=== PATIENT | male | born 1985 | race Caucasian/White ===

== ENCOUNTER 2019-11-01 03:50 | Emergency (ER) | payer OTHER ==
[~2019-11-01] VITALS: Ht 188 cm; Wt 100.7 kg
== END 2019-11-01 04:53 | disposition home or self-care (01) ==
LOC: ER 03:50
DX: S93.492A Sprain of other ligament of left ankle, initial encounter (principal); W01.0XXA Fall on same level from slipping, tripping and stumbling without subsequent striking against object, initial encounter; Y93.41 Activity, dancing; Y92.89 Other specified places as the place of occurrence of the external cause; Y99.8 Other external cause status